=== PATIENT | female | born 1955 | race Caucasian/White ===

== ENCOUNTER 2018-12-08 14:00 | Inpatient (IN) ==
[2018-12-08] MEDS ORDERED: ONDANSETRON 4 MG/2 ML VIAL IV STA (14:06)
[2018-12-08] MEDS ORDERED: SODIUM CHLORIDE 0.9% 1,000 ML IV STA ×2 (14:06→16:37)
[2018-12-08] MEDS ORDERED: HYDROmorphone 2 MG/1 ML VIAL IV STA ×2 (14:21→16:37)
[2018-12-08 14:40] LABS: Basophils % 0.2 % (0.0-0.8); Eosinophils % 0.1 % (0.00-10.9); Hematocrit 46.4 VOL% (35.7-47.0); Hemoglobin 15.1 GM/DL (12.0-16.0); Immature Granulocytes % 0.5 %; Immature Granulocytes Absolute 0.05 #; Mean Corpuscular HGB Conc 32.5 GM/DL (32-36); Mean Corpuscular Volume 98.1 FL (87-102); Mean Platelet Volume 10.9 FL (9.6-12.0); Monocytes % 7.2 % (1.7-12.7); Platelet Count 179 T/CUMM (130-400); Red Blood Count 4.73 MC/CUMM (3.8-5.5); Red Cell Distribution Width 12.5 % (9.3-17.3); White Blood Count 10.6 T/CUMM (4-12)
[2018-12-08 14:50] LABS: INR 0.9; PT Patient Result 10.2 SECS; Partial Thromboplastin Time 25.2 SECS (0-40)
[2018-12-08 15:39] LABS: Albumin 4.1 G/DL (3.4-5.0); Bilirubin,Total 0.7 MG/DL (0.2-1.0); Calcium 9.3 MG/DL (8.5-10.1); Osmolality,Calculated 276.5 MOS/KG (273-304); Total Protein 7.6 G/DL (6.4-8.3)
[2018-12-08] MEDS ORDERED: metroNIDAZOLE INJ 500 MG in PREMIX 1 EACH IV STA (16:32)
[2018-12-08] MEDS ORDERED: MORPHINE 4 MG/1 ML VIAL IV PRN (16:51)
[2018-12-08] MEDS ORDERED: MAGNESIUM SULF RIDER 4 GM in PREMIX 1 EACH IV PRN (16:51)
[2018-12-08] MEDS: CIPROFLOXACIN INJ 400 MG in PREMIX 1 EACH IV SCH (18:30)
[2018-12-08] MEDS: HYDROmorphone 2 MG/1 ML VIAL IV PRN ×2 (19:46→23:58)
[2018-12-08] MEDS: ONDANSETRON 4 MG/2 ML VIAL IV PRN ×2 (19:48→23:58)
[2018-12-08] MEDS: metroNIDAZOLE INJ 500 MG in PREMIX 1 EACH IV SCH (19:59)
[2018-12-08] MEDS: DEXTROSE 5% NACL 0.45% 1,000 ML IV SCH (21:19)
[2018-12-08] MEDS: PROMETHAZINE 25 MG/1 ML VIAL IM PRN (21:27)
[2018-12-09] MEDS: HYDROmorphone 2 MG/1 ML VIAL IV PRN ×2 (03:57→09:39)
[2018-12-09] MEDS: ONDANSETRON 4 MG/2 ML VIAL IV PRN ×3 (03:58→17:31)
[2018-12-09 05:19] LABS: Basophils % 0.2 % (0.0-0.8); Hematocrit 39.7 VOL% (35.7-47.0); Hemoglobin 12.9 GM/DL (12.0-16.0); Immature Granulocytes % 0.4 %; Immature Granulocytes Absolute 0.04 #; Lymphocytes # 0.7 10*3/uL (1.4-4.0); Lymphocytes % 6.5 % (21.3-54.2); Mean Corpuscular HGB Conc 32.5 GM/DL (32-36); Mean Corpuscular Volume 98.8 FL (87-102); Monocytes % 9.8 % (1.7-12.7); Neutrophils % 83.1 % (38.7-73.9); Platelet Count 129 T/CUMM (130-400); Red Blood Count 4.02 MC/CUMM (3.8-5.5); Red Cell Distribution Width 12.7 % (9.3-17.3); White Blood Count 10.2 T/CUMM (4-12)
[2018-12-09] MEDS: CIPROFLOXACIN INJ 400 MG in PREMIX 1 EACH IV SCH (05:19)
[2018-12-09 05:46] LABS: Albumin 2.7 G/DL (3.4-5.0); Bilirubin,Total 0.9 MG/DL (0.2-1.0); Osmolality,Calculated 278.5 MOS/KG (273-304); Risk Ratio 1.93; Thyroid Stimulating Hormone 0.881 uIU/ml (0.358-3.74); Total Protein 5.6 G/DL (6.4-8.3); VLDL CHOLESTEROL 9.2 MG/DL
[2018-12-09] MEDS: metroNIDAZOLE INJ 500 MG in PREMIX 1 EACH IV SCH ×3 (06:20→11:36)
[2018-12-09] MEDS: POTASSIUM CHLORIDE RIDER 10 MEQ in PREMIX 1 EACH IV PRN ×3 (06:20→10:27)
[2018-12-09] MEDS: PROMETHAZINE 25 MG/1 ML VIAL IM PRN (06:27)
[2018-12-09] MEDS ORDERED: PROMETHAZINE 25 MG/1 ML VIAL IV PRN (10:25)
[2018-12-09] MEDS: PANTOPRAZOLE 40 MG VIAL IV SCH (10:30)
[2018-12-09] MEDS: SCOPOLAMINE 1.5 MG PATCH TRANSDERM SCH (10:35)
[2018-12-09] MEDS: HYDROmorphone 2 MG/1 ML VIAL IM PRN ×4 (11:36→20:32)
[2018-12-09] MEDS: DEXTROSE 5% NACL 0.45% 1,000 ML IV SCH ×2 (14:27→19:41)
[2018-12-09 16:46] LABS: Apearance,Urine CLEAR (Clear); Bilirubin,Urine Negative (Negative); Blood, Urine Negative (Negative); Glucose,Urine (UA) Negative (Negative); Ketones,Urine Negative (Negative); Mucus,Urine Occasional /LPF (Occasional); Nitrite,Urine Negative (Negative); Protein,Urine Negative; RBC,Urine 1 /HPF (0-4); Squamous Epithelial Cell,Urine Occasional /HPF (0-10); Urine Color Dark yellow (Yellow); Urine Specific Gravity 1.023 (1.001-1.035); Urine Urobilinogen < 2.0 EU/DL (0.2-1.0); WBC,Urine 6 /HPF (0-6)
[2018-12-10] MEDS: HYDROmorphone 2 MG/1 ML VIAL IM PRN ×3 (00:40→09:10)
[2018-12-10] MEDS: DEXTROSE 5% NACL 0.45% 1,000 ML IV SCH ×4 (00:40→23:57)
[2018-12-10] MEDS: ONDANSETRON 4 MG/2 ML VIAL IV PRN ×6 (00:40→22:16)
[2018-12-10 04:56] LABS: Basophils # 0.1 10*3/uL (0.0-0.2); Basophils % 0.4 % (0.0-0.8); Eosinophils % 0.1 % (0.00-10.9); Hematocrit 39.3 VOL% (35.7-47.0); Hemoglobin 12.8 GM/DL (12.0-16.0); Immature Granulocytes % 0.7 %; Lymphocytes # 1.3 10*3/uL (1.4-4.0); Lymphocytes % 9.3 % (21.3-54.2); Mean Corpuscular HGB Conc 32.6 GM/DL (32-36); Mean Platelet Volume 10.7 FL (9.6-12.0); Monocytes % 12.6 % (1.7-12.7); Neutrophils % 76.9 % (38.7-73.9); Platelet Count 117 T/CUMM (130-400); Red Blood Count 3.97 MC/CUMM (3.8-5.5); Red Cell Distribution Width 12.7 % (9.3-17.3); White Blood Count 13.9 T/CUMM (4-12)
[2018-12-10 05:27] LABS: Albumin 2.3 G/DL (3.4-5.0); Bilirubin,Total 0.8 MG/DL (0.2-1.0); Calcium 7.9 MG/DL (8.5-10.1); Osmolality,Calculated 269.1 MOS/KG (273-304); Total Protein 4.9 G/DL (6.4-8.3)
[2018-12-10 05:46] LABS: Band Neutrophils 7 % (0-10); Lymphocytes 11 % (20-55); Platelet Estimate Decreased; Segmented Neutrophils 70 % (50-85); Total Cells Counted 100
[2018-12-10] MEDS: POTASSIUM CHLORIDE RIDER 10 MEQ in PREMIX 1 EACH IV PRN ×4 (06:09→14:38)
[2018-12-10] MEDS: MAGNESIUM SULF RIDER 2 GM in PREMIX 1 EACH IV PRN (06:09)
[2018-12-10] MEDS: PANTOPRAZOLE 40 MG VIAL IV SCH (09:09)
[2018-12-10] MEDS: HYDROmorphone 2 MG/1 ML VIAL IV PRN ×4 (12:21→22:16)
[2018-12-11] MEDS: HYDROmorphone 2 MG/1 ML VIAL IV PRN ×3 (05:00→19:51)
[2018-12-11] MEDS: ONDANSETRON 4 MG/2 ML VIAL IV PRN ×3 (05:01→18:23)
[2018-12-11 05:18] LABS: Basophils % 0.2 % (0.0-0.8); Eosinophils # 0.1 10*3/uL (0.0-0.87); Eosinophils % 0.7 % (0.00-10.9); Hematocrit 33.9 VOL% (35.7-47.0); Hemoglobin 11.7 GM/DL (12.0-16.0); Immature Granulocytes % 1.1 %; Immature Granulocytes Absolute 0.14 #; Lymphocytes # 1.2 10*3/uL (1.4-4.0); Lymphocytes % 9.4 % (21.3-54.2); Mean Corpuscular HGB Conc 34.5 GM/DL (32-36); Mean Corpuscular Volume 95.5 FL (87-102); Mean Platelet Volume 10.6 FL (9.6-12.0); Neutrophils % 76.6 % (38.7-73.9); Red Blood Count 3.55 MC/CUMM (3.8-5.5); Red Cell Distribution Width 12.6 % (9.3-17.3); White Blood Count 12.6 T/CUMM (4-12)
[2018-12-11 05:25] LABS: Platelet Count 67 T/CUMM (130-400)
[2018-12-11 05:43] LABS: Band Neutrophils 4 % (0-10); Eosinophils 1 % (0-10); Lymphocytes 8 % (20-55); Reactive Lymphocytes 2+; Segmented Neutrophils 78 % (50-85); Total Cells Counted 100
[2018-12-11 05:44] LABS: Platelet Estimate Decreased
[2018-12-11 05:51] LABS: Bilirubin,Total 1.2 MG/DL (0.2-1.0); Calcium 7.5 MG/DL (8.5-10.1); Osmolality,Calculated 260.7 MOS/KG (273-304); Total Protein 4.4 G/DL (6.4-8.3)
[2018-12-11] MEDS: MAGNESIUM SULF RIDER 2 GM in PREMIX 1 EACH IV PRN (06:25)
[2018-12-11] MEDS: POTASSIUM CHLORIDE RIDER 10 MEQ in PREMIX 1 EACH IV PRN ×3 (06:26→15:46)
[2018-12-11] MEDS: DEXTROSE 5% NACL 0.45% 1,000 ML IV SCH (12:35)
[2018-12-11 16:20] LABS: Basophils # 0.1 10*3/uL (0.0-0.2); Basophils % 0.5 % (0.0-0.8); Eosinophils # 0.1 10*3/uL (0.0-0.87); Eosinophils % 0.5 % (0.00-10.9); Hematocrit 34.9 VOL% (35.7-47.0); Hemoglobin 11.9 GM/DL (12.0-16.0); Immature Granulocytes % 1.6 %; Immature Granulocytes Absolute 0.21 #; Lymphocytes # 1.7 10*3/uL (1.4-4.0); Lymphocytes % 13.2 % (21.3-54.2); Mean Corpuscular HGB Conc 34.1 GM/DL (32-36); Mean Corpuscular Volume 95.4 FL (87-102); Mean Platelet Volume 10.6 FL (9.6-12.0); Monocytes % 12.8 % (1.7-12.7); Neutrophils % 71.4 % (38.7-73.9); Platelet Count 55 T/CUMM (130-400); Red Blood Count 3.66 MC/CUMM (3.8-5.5); Red Cell Distribution Width 12.8 % (9.3-17.3); White Blood Count 12.9 T/CUMM (4-12)
[2018-12-11] MEDS: SODIUM CHLOR 0.9% KCL 20 MEQ 20 MEQ/1,000 ML BAG IV SCH (18:25)
[2018-12-11 20:11] LABS: Platelet Estimate Decreased; Total Cells Counted 100
[2018-12-11 20:13] LABS: Macrocytosis Slight
[2018-12-12] MEDS: HYDROmorphone 2 MG/1 ML VIAL IV PRN ×3 (02:12→17:33)
[2018-12-12] MEDS: SODIUM CHLOR 0.9% KCL 20 MEQ 20 MEQ/1,000 ML BAG IV SCH (04:03)
[2018-12-12 05:37] LABS: Basophils % 0.4 % (0.0-0.8); Eosinophils # 0.1 10*3/uL (0.0-0.87); Eosinophils % 0.7 % (0.00-10.9); Hematocrit 31.4 VOL% (35.7-47.0); Hemoglobin 10.6 GM/DL (12.0-16.0); Immature Granulocytes % 2.1 %; Immature Granulocytes Absolute 0.21 #; Lymphocytes # 1.1 10*3/uL (1.4-4.0); Lymphocytes % 10.8 % (21.3-54.2); Mean Corpuscular HGB Conc 33.8 GM/DL (32-36); Mean Corpuscular Volume 95.4 FL (87-102); Mean Platelet Volume 12.2 FL (9.6-12.0); Monocytes % 11.8 % (1.7-12.7); Neutrophils % 74.2 % (38.7-73.9); Red Blood Count 3.29 MC/CUMM (3.8-5.5); Red Cell Distribution Width 13.2 % (9.3-17.3)
[2018-12-12 05:40] LABS: Platelet Count 41 T/CUMM (130-400)
[2018-12-12 06:01] LABS: Bilirubin,Total 1.7 MG/DL (0.2-1.0); Calcium 7.7 MG/DL (8.5-10.1); Osmolality,Calculated 267.4 MOS/KG (273-304); Total Protein 4.6 G/DL (6.4-8.3)
[2018-12-12 06:23] LABS: Band Neutrophils 1 % (0-10); Lymphocytes 8 % (20-55); Nucleated Red Blood Cells 2 (0-5); Platelet Estimate Decreased; Segmented Neutrophils 83 % (50-85); Total Cells Counted 100
[2018-12-12 06:24] LABS: Anisocytosis 1+; Macrocytosis 1+
[2018-12-12] MEDS: ONDANSETRON 4 MG/2 ML VIAL IV PRN ×2 (07:35→14:25)
[2018-12-12] MEDS: SCOPOLAMINE 1.5 MG PATCH TRANSDERM SCH (08:45)
[2018-12-12] MEDS: traMADol 50 MG TABLET PO PRN (11:25)
[2018-12-12] MEDS: POTASSIUM CHLORIDE INJ 10 MEQ in SODIUM CHLORIDE 0.9% 1,000 ML IV SCH ×2 (12:55→20:58)
[2018-12-12] MEDS: PROMETHAZINE INJ 25 MG in SODIUM CHLORIDE 0.9% 50 ML IV PRN (17:33)
[2018-12-13] MEDS: traMADol 50 MG TABLET PO PRN ×3 (00:28→17:18)
[2018-12-13] MEDS: POTASSIUM CHLORIDE INJ 10 MEQ in SODIUM CHLORIDE 0.9% 1,000 ML IV SCH ×2 (03:28→10:08)
[2018-12-13 05:34] LABS: Basophils # 0.1 10*3/uL (0.0-0.2); Basophils % 0.6 % (0.0-0.8); Eosinophils # 0.1 10*3/uL (0.0-0.87); Eosinophils % 0.9 % (0.00-10.9); Hematocrit 28.4 VOL% (35.7-47.0); Hemoglobin 9.8 GM/DL (12.0-16.0); Immature Granulocytes % 6.1 %; Immature Granulocytes Absolute 0.58 #; Lymphocytes # 1.2 10*3/uL (1.4-4.0); Lymphocytes % 12.6 % (21.3-54.2); Mean Corpuscular HGB Conc 34.5 GM/DL (32-36); Mean Corpuscular Volume 95.6 FL (87-102); NRBC # 0.04 10*3/uL; Neutrophils % 65.8 % (38.7-73.9); Red Blood Count 2.97 MC/CUMM (3.8-5.5); Red Cell Distribution Width 14.1 % (9.3-17.3); White Blood Count 9.5 T/CUMM (4-12)
[2018-12-13 05:37] LABS: INR 0.9
[2018-12-13 05:50] LABS: Platelet Count 35 T/CUMM (130-400)
[2018-12-13 05:53] LABS: Calcium 7.9 MG/DL (8.5-10.1); Osmolality,Calculated 274.2 MOS/KG (273-304)
[2018-12-13 06:04] LABS: Band Neutrophils 6 % (0-10); Eosinophils 2 % (0-10); Lymphocytes 13 % (20-55); Metamyelocytes 1 %; Polychromasia Slight; Promyelocytes 2 %; Segmented Neutrophils 64 % (50-85); Total Cells Counted 100
[2018-12-13 06:05] LABS: Macrocytosis 1+
[2018-12-13 06:06] LABS: Albumin 1.8 G/DL (3.4-5.0); Bilirubin,Total 1.5 MG/DL (0.2-1.0); Calcium 7.9 MG/DL (8.5-10.1); Osmolality,Calculated 272.4 MOS/KG (273-304); Total Protein 4.4 G/DL (6.4-8.3)
[2018-12-13 06:06] LABS: Acanthocytes Few; Platelet Estimate Decreased
[2018-12-13] MEDS: ONDANSETRON 4 MG/2 ML VIAL IV PRN ×3 (06:57→18:20)
[2018-12-13] MEDS: HYDROmorphone 2 MG/1 ML VIAL IV PRN ×3 (06:57→18:16)
[2018-12-13 09:58] LABS: Metamyelocytes 2 %; Myelocytes 1 %; Polychromasia Few
[2018-12-13 10:00] LABS: Schistocytes Slight
[2018-12-13 10:44] LABS: Segmented Neutrophils 76 % (50-85)
[2018-12-13 10:45] LABS: Band Neutrophils 5 % (0-10)
[2018-12-13 10:46] LABS: Atypical Lymphocytes Few
[2018-12-13] MEDS ORDERED: SODIUM CHLORIDE 0.9% 1,000 ML IV SCH (11:30)
[2018-12-13 12:13] LABS: Lymphocytes 7 % (20-55)
[2018-12-13 15:36] VITALS: BP 127/88
[2018-12-13] MEDS: PROMETHAZINE INJ 25 MG in SODIUM CHLORIDE 0.9% 50 ML IV PRN (17:19)
== END 2018-12-13 18:52 | disposition short-term general hospital, planned readmission (82) | DRG 371 ==
LOC: N.ED 14:00 → N.EDINP 16:54 → SUATTDRO 16:54 → N.2E 20:21
PROVIDERS: ADMIT Internal Medicine; ATTEND Internal Medicine